=== PATIENT | female | born 2000 | race Caucasian/White ===

== ENCOUNTER 2020-01-17 16:13 | Emergency (ER) | payer OTHER ==
[2020-01-17 16:22] VITALS: BP 117/81; PULSE 100; TEMP 98.6
--- NOTE | 2020-01-17 16:28 | ED ---
URI HPI - General Chief Complaint: Upper Respiratory Infection Stated Complaint: sore throat, stuffy nose, coughing Time Seen by Provider: 01/17/20 16:24 Source: patient Mode of arrival: ambulatory Limitations: no limitations - History of Present Illness Initial Comments: She is a 19-year-old female presenting to the emergency department with a chief complaint of upper respiratory symptoms. Patient states since yesterday she developed some yellow/green rhinorrhea with intermittent sinus congestion. Patient states there is pressure in her maxillary or frontal sinuses. Patient states she does smoke cigarettes daily. She also reports a sore throat which she suspects is due to the constant coughing to clear her throat. She does report left-sided otalgia that is mild. Patient states this is due to a weather change. She denies any night sweats fevers or chills. Denies any chest pain, shortness of breath, unilateral leg swelling. - Related Data Previous Rx's Medication Instructions Recorded Amoxicillin/Potassium Clav 1 tab PO Q12HR #20 tab 01/17/20 [Augmentin 875-125 Tablet] Allergies Allergy/AdvReac Type Severity Reaction Status Date / Time No Known Allergies Allergy Verified 01/17/20 16:23 Review of Systems ROS Statement: Those systems with pertinent positive or pertinent negative responses have been documented in the HPI. ROS Other: All systems not noted in ROS Statement are negative. Past Medical History Past Medical History: Asthma History of Any Multi-Drug Resistant Organisms: None Reported Past Surgical History: Section, Cholecystectomy Past Psychological History: No Psychological Hx Reported Smoking Status: Current every day smoker Past Alcohol Use History: None Reported Past Drug Use History: None Reported General Exam Limitations: no limitations General appearance: alert, in no apparent distress Head exam: Present: atraumatic, normocephalic, normal inspection Eye exam: Present: normal appearance, PERRL, EOMI Pupils: Present: normal accommodation ENT exam: Present: normal exam, normal oropharynx, mucous membranes moist, TM's normal bilaterally, normal external ear exam Neck exam: Present: normal inspection, full ROM. Absent: tenderness Respiratory exam: Present: normal lung sounds bilaterally. Absent: respiratory distress, wheezes, rales, rhonchi, stridor, chest wall tenderness Cardiovascular Exam: Present: regular rate, normal rhythm, normal heart sounds Extremities exam: Present: normal inspection, full ROM, normal capillary refill. Absent: tenderness Back exam: Present: normal inspection, full ROM. Absent: tenderness, CVA tenderness (R), CVA tenderness (L) Neurological exam: Present: alert, oriented X3 Psychiatric exam: Present: normal affect, normal mood Skin exam: Present: warm, dry, intact, normal color Course Vital Signs 01/17/20 16:20 Temperature 98.6 F Pulse Rate 100 Respiratory 18 Rate Blood Pressure 117/81 O2 Sat by Pulse 98 Oximetry Medical Decision Making - Medical Decision Making patient is a 19-year-old female presenting to the emergency department with chief complaint of upper respiratory symptoms. On exam patient has frontal and maxillary sinus tenderness to palpation. She does have yellow rhinorrhea. I suspect her sore throat secondary to postnasal drip. She is clear to auscultation. No chest pain shortness of breath. No exposure to any known Covid patient. Patient will be started on Augmentin and discharged with a 10 day course of Augmentin. Her vitals are stable. I counseled the patient for smoking cessation for greater than 3 minutesStrict return parameters were thoroughly discussed the patient was understanding and agreeable. Case discussed with physician. Disposition Clinical Impression: Sinusitis, Upper respiratory infection Disposition: HOME SELF-CARE Condition: Stable Instructions (If sedation given, give patient instructions): Sinusitis (ED) Additional Instructions: Take prescribed medication as directed. Follow with primary care physician. Return to emergency department if symptoms worsen. Prescriptions: Amoxicillin/Potassium Clav [Augmentin 875-125 Tablet] 1 tab PO Q12HR #20 tab Is patient prescribed a controlled substance at d/c from ED?: No Referrals: Shelly Kerr MD [Primary Care Provider] - 1-2 days Time of Disposition: 16:36
[2020-01-17] MEDS ORDERED: AMOXIC-POT CLAV 875-125MG 1 EACH TAB PO STA (16:35)
[2020-01-17 16:48] VITALS: RESP 19
== END 2020-01-17 16:54 | disposition home or self-care (01) ==
LOC: EC 16:13
DX: J02.9 Acute pharyngitis, unspecified (principal); J32.9 Chronic sinusitis, unspecified; H92.02 Otalgia, left ear; F17.210 Nicotine dependence, cigarettes, uncomplicated; Z87.09 Personal history of other diseases of the respiratory system
CPT/HCPCS: 99283